=== PATIENT | male | born 1975 | race Caucasian/White ===

== ENCOUNTER 2019-08-19 15:00 | Emergency (ER) | payer OTHER, MEDICAID, SELFPAY ==
--- NOTE | 2019-08-19 15:04 | ED_ITS ---
HPI - Eye Problem General Chief complaint: Eye Problems Stated complaint: SOMETHING ON RIGHT EYE Time Seen by Provider: 08/19/19 15:02 Source: patient Mode of arrival: Ambulatory Limitations: no limitations History of Present Illness HPI Narrative: 44-year-old male daily smoker with noncontributory medical history presents with a chief complaint of an irritation in his right eye over the past day or so. He denies any specific event that he can remember where he was exposed to a possible foreign body. He was not grinding metal or working with power tools, he was not outside and the wind and does not remember a particular significant event. He denies any matting or purulent drainage. He denies any pain or change in vision. He does not wear contacts. He denies other symptoms MD chief complaint: other Onset (ago): day(s) Onset description: unknown Duration: constant Location: right eye Eye Symptoms: foreign body sensation and itching Mechanism: none Severity: mild If Pain, Quality: other Associated symptoms: none Treatments Prior to Arrival: none Related Data Patient tetanus UTD: Yes Previous Rx's Medication Instructions Recorded hydrocodone-acetaminophen [Stapleton] 1 tab PO Q4HP PRN #7 tab 03/30/17 indomethacin 25 mg PO Q8HP PRN #20 cap 03/30/17 Allergies Allergy/AdvReac Type Severity Reaction Status Date / Time Penicillins [PENICILLINS] Allergy Unknown Verified 08/19/19 15:12 Sulfa (Sulfonamide Allergy Unknown Verified 08/19/19 15:12 Antibiotics) [SULFA (SULFONAMIDE ANTIBIOTICS)] Review of Systems Constitutional Constitutional: Denies chills, Denies fatigue, Denies fever(s), Denies frequent falls, Denies lethargy and Denies weakness Eyes Eyes: Denies change in vision, Denies eye discharge, Reports irritation and Denies loss of vision ENT Ears, Nose, Mouth, and Throat: Denies change in voice, Denies dizziness, Denies neck pain, Denies sore throat and Denies throat swelling Cardiovascular Cardiovascular: Denies chest pain, Denies irregular heart rhythm, Denies lightheadedness, Denies palpitations, Denies dyspnea, Denies dyspnea on exertion and Denies orthopnea Respiratory Respiratory: Denies cough, Denies dyspnea, Denies dyspnea on exertion and Denies wheezing Gastrointestinal Gastrointestinal: Denies abdominal pain, Denies change in bowel habits, Denies diarrhea, Denies nausea and Denies vomiting Genitourinary Genitourinary: Denies hematuria, Denies flank pain, Denies urinary incontinence and Denies urinary urgency Musculoskeletal Musculoskeletal: Denies back pain, Denies muscle weakness, Denies neck pain, Denies numbness and Denies tingling Integumentary/Breasts Skin/Breast: Denies pruritus, Denies erythema, Denies rash and Denies wounds Neurologic Neurologic: Denies behavioral changes, Denies confusion, Denies dizziness, Denies frequent falls, Denies loss of vision, Denies numbness, Denies tingling and Denies weakness Psychiatric Psychiatric: Denies anxiety, Denies behavioral changes, Denies confusion, Denies depression, Denies homicidal ideation and Denies suicidal ideation Endocrine Endocrine: Denies fatigue, Denies flushing and Denies palpitations Hematologic/Lymphatic Hematologic/Lymphatic: Denies easy bruising Allergic/Immunologic Allergic/Immunologic: Denies urticaria, Denies throat swelling and Denies wheezing Patient History Social History Smoking Status: Current every day smoker Smoking Status: Current every day smoker Exam Narrative Exam Narrative: GEN: AOx3 and in mild distress EYES: Pupils are equal, round, and reactive to light and accommodation. Extraoccular muscles are intact bilaterally. There is no subconjunctival hemorrhage or exudate. Small visible vein noted on external inspection of right upper lid, when Right upper lid is everted a small fleshy, soft skin lesion is noted underlying that external visible vein. It is non tender, firm, indurated, or fluctuant. There is no FB noted. Complete resolution of symptoms with proparacaine. Eye visualized under Winn lamp and no FB noted. Also viewed under UV and no fluorescein uptake noted. CHEST: Lungs are clear to auscultation bilaterally and free of wheezes, rales, or rhonchi. Heart rate is regular rhythm, there are no murmurs, clicks, rubs, or gallops. There is no chest wall tenderness. ABD: Abdomen is soft and nontender. There is no guarding or rebound. Bowel sounds are normal in all 4 quadrants. There is no mass or organomegaly. EXT: Full painless ROM of all extremities with no loss of sensation or strength. SKIN: Warm, pink, and dry. No erythema or rash Initial Vital Signs Initial Vital Signs: Vital Signs Temperature 97.9 F 08/19/19 15:12 Pulse Rate 76 08/19/19 15:12 Respiratory Rate 15 08/19/19 15:12 Blood Pressure 145/111 H 08/19/19 15:12 Pulse Oximetry 99 08/19/19 15:12 Course Orders Ordered: Discontinued Medications Fluorescein Sodium (Ful-Lupe) 1 mg EYE-RIGHT NOW ONE Stop: 08/19/19 15:08 Last Admin: 08/19/19 15:15 Dose: 1 mg Documented by: BTONER Proparacaine HCl (Parcaine 0.5% Ophth Yandy) 1 drops EYE-RIGHT NOW ONE Stop: 08/19/19 15:06 Last Admin: 08/19/19 15:12 Dose: 1 drop Documented by: BTONER Vital Signs Vital signs: Vital Signs - 8 hr 08/19/19 15:12 08/19/19 15:25 Temperature 97.9 F Pulse Rate 76 Respiratory Rate 15 20 Blood Pressure 145/111 H 135/99 H Pulse Oximetry 99 99 Discharge Plan Departure Patient Disposition: Home Clinical Impression: Eyelid anomaly Discharge Date/Time: 08/19/19 15:42 Activity Restrictions/Additional Instructions: *You have been diagnosed with [inflamed region of right upper eyelid, no evidence of foreign body or infection] *What to do: *Take medications as directed *Follow up with your primary care provider in 2-3 days, call for an appointment. Let them know you were seen in the Emergency Department and that we ask that you be seen in follow up *Return to ER if you should have any new, worsening or concerning symptoms Prescriptions: No Action hydrocodone-acetaminophen [Stapleton] 5 MG/325 MG tablet 1 tab PO Q4HP PRNQty: 7 RF: 0 indomethacin 25 MG capsule 25 mg PO Q8HP PRNQty: 20 RF: 0 Referrals: Lonnie Salas MD [Physician] - Neela Aguilar ARNP [Primary Care Provider] -
[2019-08-19 15:12] VITALS: BP 145/111; PULSE 76; RESP 15; TEMP 36.6; O2SAT 99; BMI 32.5
[2019-08-19] MEDS: PROPARACAINE 0.5% OPHTH SOL 1 DROPS EYE-RIGHT (15:12)
[2019-08-19] MEDS: FLUORESCEIN 1 MG STRIP EYE-RIGHT (15:15)
[2019-08-19 15:25] VITALS: BP 135/99; RESP 20; O2SAT 99
== END 2019-08-19 15:42 | disposition home or self-care (01) ==
PROVIDERS: Emergency Provider Emergency Medicine; PCP Nurse Practitioner Family
DX: Q10.3 Other congenital malformations of eyelid (principal)
CPT/HCPCS: 99282

== ENCOUNTER → 2020-12-25 13:35 | Outpatient (CLI) | payer OTHER, MEDICAID, SELFPAY ==
[2020-12-25 14:16] LABS: Add Manual Diff / Slide Review NO; Basophils Absolute Auto 100 /uL (0-100); Basophils Percent Auto 1.4 % (0-2); Eosinophils Absolute Auto 300 /uL (0-450); Hematocrit 48.2 % (41-53); Hemoglobin 16.5 g/dL (13.5-17.5); Lymphocytes Absolute Auto 2700 /uL (1100-4500); Lymphocytes Percent Auto 40.4 % (25-40); Mean Corpuscular HGB Conc 34.3 % (30-36); Mean Corpuscular Hemoglobin 32.8 PG (26-34); Mean Corpuscular Volume 95.6 fL (80-100); Monocytes Absolute Auto 400 /uL (0-900); Monocytes Percent Auto 6.2 % (3-14); Neutrophils Absolute Auto 3200 /uL (1500-7000); Platelet Count 225 X10^3/uL (150-400); Red Blood Cell Count 5.04 X10^6/uL (4.5-5.9); Red Cell Distribution Width 12.9 % (11.6-14.8); White Blood Cell Count 6.7 X10^3/uL (4.5-11.0)
[2020-12-25 14:49] LABS: Alanine Aminotransferase 72 IU/L (<50); Albumin 4.7 g/dL (3.5-5.0); Albumin Globulin Ratio 1.3 (1.0-2.8); Alkaline Phosphatase 77 U/L (38-126); Aspartate Aminotransferase 72 IU/L (17-59); BUN Creatinine Ratio 14.9 (6-22); Bilirubin Total 0.9 mg/dL (0.2-1.3); Blood Urea Nitrogen 13 mg/dL (9-20); Calcium 9.6 mg/dL (8.4-10.2); Carbon Dioxide 22 mmol/L (22-32); Chloride 105 mmol/L (98-107); Estimated Glomerular Filt Rate > 60.0 mL/min (>60); Globulin 3.7 g/dL (1.7-4.1); Glucose 100 mg/dL (70-100); HDL Cholesterol 53 mg/dL (40-60); HEMOLYSIS < 15 (0-50); Potassium 3.8 mmol/L (3.4-5.1); Sodium 140 mmol/L (137-145); Total Protein 8.4 g/dL (6.3-8.2); Triglycerides 458 mg/dL (35-150)
[2020-12-25 14:56] LABS: Cholesterol 347 mg/dL (140-199)
[2020-12-25 17:06] LABS: Vitamin D 25 Hydroxy (D3) 17.1 ng/mL (30.0-100.0)
== END ==
PROVIDERS: PCP Student in an Organized Health Care Education/Training Program; Referring Provider Student in an Organized Health Care Education/Training Program; Visit Provider Student in an Organized Health Care Education/Training Program
DX: E55.9 Vitamin D deficiency, unspecified (principal); K50.90 Crohn's disease, unspecified, without complications; Z13.220 Encounter for screening for lipoid disorders
CPT/HCPCS: 36415; 80053; 80061; 82306; 85025

== ENCOUNTER → 2022-06-25 15:55 | Outpatient (CLI) | payer OTHER, MEDICAID, SELFPAY ==
[2022-06-25 16:43] LABS: Alanine Aminotransferase 73 IU/L (<50); Albumin 4.4 g/dL (3.5-5.0); Albumin Globulin Ratio 1.2 (1.0-2.8); Alkaline Phosphatase 80 U/L (38-126); Aspartate Aminotransferase 74 IU/L (17-59); BUN Creatinine Ratio 17.5 (6-22); Bilirubin Total 0.9 mg/dL (0.2-1.3); Blood Urea Nitrogen 14 mg/dL (9-20); Calcium 8.9 mg/dL (8.4-10.2); Carbon Dioxide 26 mmol/L (22-32); Chloride 106 mmol/L (98-107); Cholesterol 277 mg/dL (140-199); Estimated Glomerular Filt Rate > 60 mL/min (>60); Globulin 3.6 g/dL (1.7-4.1); Glucose 124 mg/dL (70-100); HDL Cholesterol 56 mg/dL (40-60); HEMOLYSIS < 15 (0-50); LDL Cholesterol Calculated 163 mg/dL (<100); Potassium 3.8 mmol/L (3.4-5.1); Sodium 140 mmol/L (137-145); Triglycerides 290 mg/dL (35-150)
[2022-06-25 17:16] LABS: Vitamin D 25 Hydroxy (D3) 36.6 ng/mL (30.0-100.0)
== END ==
PROVIDERS: PCP Student in an Organized Health Care Education/Training Program; Referring Provider Student in an Organized Health Care Education/Training Program; Visit Provider Student in an Organized Health Care Education/Training Program
DX: E78.49 Other hyperlipidemia (principal); K50.90 Crohn's disease, unspecified, without complications; M87.051 Idiopathic aseptic necrosis of right femur; M87.052 Idiopathic aseptic necrosis of left femur; Z79.899 Other long term (current) drug therapy; E55.9 Vitamin D deficiency, unspecified
CPT/HCPCS: 36415; 80053; 80061; 82306

== ENCOUNTER → 2024-07-28 14:42 | Outpatient (CLI) | payer OTHER, SELFPAY ==
--- NOTE | 2024-07-28 14:43 | DI.RAD.S_ITS ---
PROCEDURE: XR KNEE RT 3V INDICATIONS: Right knee pain TECHNIQUE: 3 views of the knee were acquired. COMPARISON: [facility], , KNEE 3V RIGHT, 03/30/2017, 18:47. FINDINGS: Bones: No fractures or dislocations. No suspicious bony lesions. Soft tissues: No joint effusion. No suspicious soft tissue calcifications. IMPRESSION: No acute bony abnormality or significant effusion. Dictated by: Cullen Chang M.D. on 07/29/2024 at 16:42 Approved by: Cullen Chang M.D. on 07/29/2024 at 16:42
--- NOTE | 2024-07-28 14:43 | DI.RAD.S_ITS ---
PROCEDURE: XR HIP W PEL IF DONE LT 2V INDICATIONS: monitor avascular necrosis TECHNIQUE: AP pelvis and lateral view of the hip acquired. COMPARISON: [facility], CR, [id number] W PEL IF PERFORMED, 03/30/2017, 18:47. FINDINGS: Status post right hip total arthroplasty without hardware complication of the visualized elements. No acute fracture or dislocation. Slight interval increase in sclerosis of the left femoral head with articular surface irregularity at the medial margin. The sacroiliac joints and pubic symphysis are preserved. IMPRESSION: Findings suggestive of left hip osteonecrosis without significant articular surface collapse. Dictated by: Cullen Chang M.D. on 07/29/2024 at 16:40 Approved by: Cullen Chang M.D. on 07/29/2024 at 16:42
[2024-07-28 16:10] LABS: Hematocrit 52.8 % (41-53); Hemoglobin 18.2 g/dL (13.5-17.5); Mean Corpuscular HGB Conc 34.4 % (30-36); Mean Corpuscular Hemoglobin 34.3 PG (26-34); Mean Corpuscular Volume 99.6 fL (80-100); Platelet Count 211 X10^3/uL (150-400); Red Cell Distribution Width 13.8 % (11.6-14.8); White Blood Cell Count 8.9 X10^3/uL (4.5-11.0)
[2024-07-28 16:39] LABS: BUN Creatinine Ratio 14.5 (6-22); Blood Urea Nitrogen 11 mg/dL (9-20); Calcium 9.7 mg/dL (8.4-10.2); Carbon Dioxide 25 mmol/L (22-32); Chloride 104 mmol/L (98-107); Estimated Glomerular Filt Rate > 60 mL/min (>60); Glucose 111 mg/dL (70-100); HDL Cholesterol 71 mg/dL (40-60); Potassium 3.8 mmol/L (3.4-5.1); Sodium 137 mmol/L (137-145); Triglycerides 229 mg/dL (35-150)
[2024-07-28 16:45] LABS: HEMOLYSIS 16 (0-50)
[2024-07-28 16:46] LABS: Cholesterol 341 mg/dL (140-199); LDL Cholesterol Calculated 224 mg/dL (<100)
== END ==
PROVIDERS: PCP Nurse Practitioner Family; Referring Provider Nurse Practitioner Family; Visit Provider Nurse Practitioner Family
DX: M87.052 Idiopathic aseptic necrosis of left femur (principal); M87.051 Idiopathic aseptic necrosis of right femur; M25.561 Pain in right knee; E78.49 Other hyperlipidemia; K50.90 Crohn's disease, unspecified, without complications; Z96.641 Presence of right artificial hip joint
CPT/HCPCS: 36415; 73502; 73562; 80048; 80061; 85027